=== PATIENT | male | born 1980 | race African-American/Black ===

== ENCOUNTER 2022-03-30 21:08 | Inpatient (IN) | payer OTHER ==
[2022-03-30] MEDS ORDERED: LACTATED RINGERS SOLUTION 1000 ML INFUS.BAG IV ONE (22:16)
[2022-03-30] MEDS ORDERED: PIPERACILLIN/TAZOB 4.5 GM 4.5 GM in DEXTROSE 5%-WATER 100 ML IVPB ONE (22:32)
[2022-03-30] MEDS ORDERED: VANCOMYCIN 1,000 MG in DEXTROSE 5%-WATER - 250 ML IVPB ONE (22:32)
[2022-03-30 22:56] LABS: BASO % 0.6 % (0-2.0); EOS % 1.8 % (0-4.5); HEMATOCRIT 30.2 % (35.4-49); HEMOGLOBIN 10.1 GM/dL (11.7-16.9); LYMPH % 22.4 % (8-40); MCH 28.4 pg (25.7-33.7); MCHC 33.5 g/dl (32.0-35.9); MEAN CELL VOLUME 84.6 fl (80-96); MEAN PLT VOLUME 7.7 fl (7.5-11.1); MONO % 8.4 % (3.8-10.2); NEUT % 66.8 % (42.8-82.8); PLATELET COUNT 304 10^3/uL (134-434); RBC 3.56 M/mm3 (4.00-5.60); RDW 14.3 % (11.9-15.9); WHITE BLOOD COUNT 6.5 K/mm3 (4.0-10.0)
[2022-03-30] MEDS ORDERED: PIPERACILLIN/TAZOB 4.5 GM 4.5 GM/100 ML BAG IVPB ONE (22:56)
[2022-03-30] MEDS ORDERED: VANCOMYCIN 1 GRAM (PRE-DOCKED) 1,000 MG/250 ML BAG IVPB ONE (22:56)
[2022-03-30 23:15] LABS: CHLORIDE 98 mmol/L (98-107); SODIUM 132 mmol/L (136-145)
[2022-03-30 23:17] LABS: CALCIUM 8.2 mg/dL (8.5-10.1)
[2022-03-30 23:18] LABS: ALBUMIN 2.3 g/dl (3.4-5.0); ANION GAP 9 MMOL/L (8-16); BLOOD UREA NITROGEN 14.1 mg/dL (7-18); CO2 25 mmol/L (21-32)
[2022-03-30 23:21] LABS: CREATININE 1.4 mg/dL (0.55-1.3); SGOT/AST 10 U/L (15-37)
[2022-03-30 23:22] LABS: TOT PROT 7.4 g/dl (6.4-8.2)
[2022-03-30 23:23] LABS: BILIRUBIN,TOTAL 0.2 mg/dL (0.2-1)
[2022-03-30 23:24] LABS: ALK PHOS 100 U/L (45-117)
[2022-03-31 00:30] LABS: GLUCOSE,RANDOM 496 mg/dL (74-106); SGPT/ALT 9 U/L (13-61)
[2022-03-31] MEDS ORDERED: INSULIN REGULAR HUMAN 100 UNITS/ML *VIAL IVPUSH ONE (00:43)
[2022-03-31 02:50] LABS: EPI CELLS 13 /uL (0-25.1); HYALINE CASTS 2 /uL (0-3.1); URINE APPEARANCE TURBID; URINE BACTERIA 256 /uL (0-1359); URINE BILIRUBIN NEGATIVE (NEGATIVE); URINE COLOR YELLOW; URINE GLUCOSE (UA) 3+ (NEGATIVE); URINE KETONE NEGATIVE (NEGATIVE); URINE LEUK ESTERASE 2+ (NEGATIVE); URINE NITRITE NEGATIVE (NEGATIVE); URINE PROTEIN 2+ (NEGATIVE); URINE RBC 80 /uL (0-23.9); URINE UROBILINOGEN 0.2 mg/dL (0.2-1.0); URINE WBC 1693 /uL (0-25.8)
[2022-03-31] MEDS: SODIUM CHLORIDE 1,000 ML IV SCH (03:34)
[2022-03-31] MEDS ORDERED: ACETAMINOPHEN 1000 MG/100 ML BAG IVPB ONE (03:36)
[2022-03-31] MEDS ORDERED: ACETAMINOPHEN INJECTION 100 ML IVPB ONE ×3 (03:37→16:42)
[2022-03-31] MEDS ORDERED: INSULIN SLIDING SCALE (NOVOLOG) 1 VIAL SQ SCH ×2 (07:00→11:00)
[2022-03-31] MEDS ORDERED: HEPARIN NA (PORCINE) 5,000 UNITS/ML 1ML VIAL ONE ×2 (08:05→15:53)
[2022-03-31] MEDS: HEPARIN NA (PORCINE) 5,000 UNITS/ML 1ML VIAL SQ SCH ×3 (08:08→22:26)
[2022-03-31 10:00] LABS: BASO % 0.6 % (0-2.0); HEMATOCRIT 29.2 % (35.4-49); LYMPH % 15.4 % (8-40); MCH 28.5 pg (25.7-33.7); MCHC 34.2 g/dl (32.0-35.9); MEAN CELL VOLUME 83.3 fl (80-96); MEAN PLT VOLUME 7.7 fl (7.5-11.1); MONO % 7.3 % (3.8-10.2); NEUT % 74.7 % (42.8-82.8); PLATELET COUNT 317 10^3/uL (134-434); RBC 3.51 M/mm3 (4.00-5.60); RDW 14.4 % (11.9-15.9); WHITE BLOOD COUNT 7.7 K/mm3 (4.0-10.0)
[2022-03-31] MEDS ORDERED: VANCOMYCIN 1 GM in D5W (PRE-DOCKED) 1,000 MG/250 ML IVPB SCH (10:00)
[2022-03-31] MEDS ORDERED: PIPERACILLIN/TAZOB 3.375 GM 3.375 GM in DEXTROSE 5%-WATER - 50 ML IVPB SCH ×2 (10:15→10:45)
[2022-03-31 10:21] LABS: CALCIUM 8.1 mg/dL (8.5-10.1)
[2022-03-31 10:22] LABS: ALBUMIN 2.2 g/dl (3.4-5.0); BLOOD UREA NITROGEN 17.9 mg/dL (7-18); MAGNESIUM 2.1 mg/dL (1.8-2.4)
[2022-03-31 10:25] LABS: CREATININE 1.2 mg/dL (0.55-1.3); PHOSPHOROUS 3.4 mg/dL (2.5-4.9)
[2022-03-31 10:26] LABS: BILIRUBIN,TOTAL 0.3 mg/dL (0.2-1); TOT PROT 7.3 g/dl (6.4-8.2)
[2022-03-31] MEDS: INSULIN (LEVEMIR) 100 UNITS/ML UNITS SQ SCH ×2 (10:44→22:26)
[2022-03-31] MEDS: ACETAMINOPHEN 1000 MG/100 ML BAG IVPB PRN ×2 (10:45→22:27)
[2022-03-31] MEDS: PIPERACILLIN/TAZOB 3.375 GM 3.375 GM in DEXTROSE 5%-WATER - 50 ML IVPB SCH ×2 (15:00→18:13)
[2022-03-31] MEDS ORDERED: PIPERACILLIN/TAZOB 3.375 GM 3.375 GM/50 ML BAG IVPB ONE (15:53)
[2022-03-31] MEDS: INSULIN SLIDING SCALE (NOVOLOG) 1 VIAL SQ SCH ×3 (16:05→22:27)
[2022-03-31] MEDS ORDERED: PIPERACILLIN/TAZOBACTAM 3.375 GM VIAL IVPB ONE (18:05)
[2022-03-31] MEDS ORDERED: DEXTROSE 5%-WATER - 50 ML IVPB ONE (18:05)
[2022-03-31] MEDS ORDERED: VANCOMYCIN 1 GRAM (PRE-DOCKED) 1,000 MG/250 ML BAG IVPB SCH (22:00)
[2022-04-01] MEDS ORDERED: DEXTROSE 5%-WATER - 50 ML IVPB ONE ×3 (01:30→17:36)
[2022-04-01] MEDS ORDERED: PIPERACILLIN/TAZOBACTAM 3.375 GM VIAL IVPB ONE ×3 (01:30→17:36)
[2022-04-01] MEDS: SODIUM CHLORIDE 1,000 ML IV SCH (02:15)
[2022-04-01] MEDS: PIPERACILLIN/TAZOB 3.375 GM 3.375 GM in DEXTROSE 5%-WATER - 50 ML IVPB SCH ×3 (02:16→17:48)
[2022-04-01] MEDS: HEPARIN NA (PORCINE) 5,000 UNITS/ML 1ML VIAL SQ SCH ×3 (07:03→21:29)
[2022-04-01] MEDS: INSULIN SLIDING SCALE (NOVOLOG) 1 VIAL SQ SCH ×4 (07:03→21:36)
[2022-04-01 07:14] LABS: BASO % 0.3 % (0-2.0); EOS % 2.1 % (0-4.5); HEMATOCRIT 28.1 % (35.4-49); HEMOGLOBIN 9.5 GM/dL (11.7-16.9); LYMPH % 22.6 % (8-40); MCH 28.1 pg (25.7-33.7); MCHC 33.8 g/dl (32.0-35.9); MEAN CELL VOLUME 82.9 fl (80-96); MEAN PLT VOLUME 7.5 fl (7.5-11.1); MONO % 8.6 % (3.8-10.2); NEUT % 66.4 % (42.8-82.8); PLATELET COUNT 313 10^3/uL (134-434); RBC 3.39 M/mm3 (4.00-5.60); RDW 14.6 % (11.9-15.9); WHITE BLOOD COUNT 6.3 K/mm3 (4.0-10.0)
[2022-04-01] MEDS ORDERED: CEFOXITIN SODIUM 1 GM IVPB ONE (07:15)
[2022-04-01] MEDS ORDERED: ONDANSETRON 4 MG/2 ML VIAL IVPUSH PRN (07:17)
[2022-04-01] MEDS ORDERED: PROMETHAZINE HCL 25 MG/1 ML VIAL IVPUSH PRN (07:17)
[2022-04-01] MEDS ORDERED: LIDOCAINE HCL 2% 100 MG/5 ML DISP.SYRIN ONE (07:27)
[2022-04-01] MEDS ORDERED: PROPOFOL 20 ML ONE (07:29)
[2022-04-01] MEDS ORDERED: MIDAZOLAM HCL 2 MG/2 ML SINGLE DOSE VIAL ONE (07:29)
[2022-04-01] MEDS ORDERED: LACTATED RINGERS SOLUTION 1,000 ML IV SCH (07:30)
[2022-04-01 07:36] LABS: PHOSPHOROUS 3.4 mg/dL (2.5-4.9)
[2022-04-01 07:37] LABS: BILIRUBIN,TOTAL 0.3 mg/dL (0.2-1); TOT PROT 6.9 g/dl (6.4-8.2)
[2022-04-01] MEDS ORDERED: ROCURONIUM BROMIDE 50 MG/5 ML SYRINGE ONE (07:45)
[2022-04-01] MEDS ORDERED: DEXAMETHASONE SOD PHOSPHATE 4 MG/1 ML VIAL ONE (08:30)
[2022-04-01] MEDS ORDERED: GLYCOPYRROLATE 0.2 MG/1 ML VIAL ONE (08:31)
[2022-04-01] MEDS ORDERED: NEOSTIGMINE METHYLSULFATE 0.5 MG/ML - 10 ML MDV ONE (08:31)
[2022-04-01] MEDS: INSULIN (LEVEMIR) 100 UNITS/ML UNITS SQ SCH ×2 (10:47→21:29)
[2022-04-01] MEDS: ACETAMINOPHEN 1000 MG/100 ML BAG IVPB PRN (19:48)
[2022-04-02] MEDS ORDERED: DEXTROSE 5%-WATER - 50 ML IVPB ONE ×3 (01:13→16:38)
[2022-04-02] MEDS ORDERED: PIPERACILLIN/TAZOBACTAM 3.375 GM VIAL IVPB ONE ×3 (01:13→16:38)
[2022-04-02] MEDS: PIPERACILLIN/TAZOB 3.375 GM 3.375 GM in DEXTROSE 5%-WATER - 50 ML IVPB SCH ×3 (01:33→17:22)
[2022-04-02] MEDS: SODIUM CHLORIDE 1,000 ML IV SCH ×2 (01:33→12:46)
[2022-04-02] MEDS: HEPARIN NA (PORCINE) 5,000 UNITS/ML 1ML VIAL SQ SCH ×3 (06:30→21:39)
[2022-04-02] MEDS: INSULIN SLIDING SCALE (NOVOLOG) 1 VIAL SQ SCH ×4 (06:31→21:38)
[2022-04-02 08:55] LABS: BASO % 0.3 % (0-2.0); EOS % 0.7 % (0-4.5); HEMATOCRIT 27.4 % (35.4-49); HEMOGLOBIN 9.3 GM/dL (11.7-16.9); LYMPH % 26.3 % (8-40); MCH 28.3 pg (25.7-33.7); MEAN CELL VOLUME 83.2 fl (80-96); MEAN PLT VOLUME 7.7 fl (7.5-11.1); MONO % 9.2 % (3.8-10.2); NEUT % 63.5 % (42.8-82.8); PLATELET COUNT 320 10^3/uL (134-434); RBC 3.29 M/mm3 (4.00-5.60); RDW 14.2 % (11.9-15.9)
[2022-04-02 09:15] LABS: ALBUMIN 1.9 g/dl (3.4-5.0); CALCIUM 7.8 mg/dL (8.5-10.1)
[2022-04-02 09:16] LABS: BLOOD UREA NITROGEN 13.6 mg/dL (7-18)
[2022-04-02 09:19] LABS: PHOSPHOROUS 2.6 mg/dL (2.5-4.9)
[2022-04-02 09:20] LABS: BILIRUBIN,TOTAL 0.2 mg/dL (0.2-1); TOT PROT 6.6 g/dl (6.4-8.2)
[2022-04-02] MEDS: ACETAMINOPHEN 1000 MG/100 ML BAG IVPB PRN ×2 (09:58→17:46)
[2022-04-02] MEDS: INSULIN (LEVEMIR) 100 UNITS/ML UNITS SQ SCH ×2 (11:42→21:38)
[2022-04-02 14:01] VITALS: BMI 23.6
[2022-04-02] MEDS: AMINO ACIDS/PROTEIN HYDROLYS 30 ML LIQUID.PKT PO SCH (17:22)
[2022-04-02] MEDS ORDERED: diphenhydrAMINE HCL 25 MG CAPSULE (FP) PO ONE (21:06)
[2022-04-03] MEDS ORDERED: DEXTROSE 5%-WATER - 50 ML IVPB ONE ×3 (00:08→17:07)
[2022-04-03] MEDS ORDERED: PIPERACILLIN/TAZOBACTAM 3.375 GM VIAL IVPB ONE ×4 (00:08→17:07)
[2022-04-03] MEDS: PIPERACILLIN/TAZOB 3.375 GM 3.375 GM in DEXTROSE 5%-WATER - 50 ML IVPB SCH ×4 (00:50→17:22)
[2022-04-03] MEDS: HEPARIN NA (PORCINE) 5,000 UNITS/ML 1ML VIAL SQ SCH ×2 (06:23→13:21)
[2022-04-03] MEDS: SODIUM CHLORIDE 1,000 ML IV SCH (06:23)
[2022-04-03] MEDS: INSULIN SLIDING SCALE (NOVOLOG) 1 VIAL SQ SCH ×4 (06:23→21:48)
[2022-04-03] MEDS: AMINO ACIDS/PROTEIN HYDROLYS 30 ML LIQUID.PKT PO SCH ×3 (09:04→17:20)
[2022-04-03 10:07] LABS: BASO % 0.5 % (0-2.0); HEMATOCRIT 27.7 % (35.4-49); HEMOGLOBIN 9.4 GM/dL (11.7-16.9); MCH 28.3 pg (25.7-33.7); MCHC 33.8 g/dl (32.0-35.9); MEAN CELL VOLUME 83.6 fl (80-96); MEAN PLT VOLUME 7.2 fl (7.5-11.1); MONO % 8.4 % (3.8-10.2); NEUT % 65.1 % (42.8-82.8); PLATELET COUNT 309 10^3/uL (134-434); RBC 3.31 M/mm3 (4.00-5.60); RDW 14.2 % (11.9-15.9); WHITE BLOOD COUNT 6.3 K/mm3 (4.0-10.0)
[2022-04-03 10:28] LABS: CALCIUM 7.9 mg/dL (8.5-10.1)
[2022-04-03 10:29] LABS: ALBUMIN 1.9 g/dl (3.4-5.0); BLOOD UREA NITROGEN 16.2 mg/dL (7-18); MAGNESIUM 1.7 mg/dL (1.8-2.4)
[2022-04-03 10:32] LABS: CREATININE 0.7 mg/dL (0.55-1.3); PHOSPHOROUS 2.5 mg/dL (2.5-4.9)
[2022-04-03 10:33] LABS: BILIRUBIN,TOTAL 0.3 mg/dL (0.2-1); TOT PROT 6.5 g/dl (6.4-8.2)
[2022-04-03] MEDS: INSULIN (LEVEMIR) 100 UNITS/ML UNITS SQ SCH ×2 (10:57→21:38)
[2022-04-03] MEDS: ASCORBIC ACID 500 MG TABLET (FP) PO SCH (10:58)
[2022-04-03] MEDS: ZINC SULFATE 220 MG CAPSULE (FP) PO SCH (11:53)
[2022-04-03] MEDS: ACETAMINOPHEN 1000 MG/100 ML BAG IVPB PRN ×2 (14:11→21:45)
[2022-04-03] MEDS: VANCOMYCIN 250 MG/5 ML ORAL SOLUTION PO SCH (17:20)
[2022-04-03] MEDS: diphenhydrAMINE HCL 25 MG CAPSULE (FP) PO PRN (22:33)
[2022-04-04] MEDS ORDERED: PIPERACILLIN/TAZOBACTAM 3.375 GM VIAL IVPB ONE ×3 (00:40→16:27)
[2022-04-04] MEDS ORDERED: DEXTROSE 5%-WATER - 50 ML IVPB ONE ×3 (00:41→16:27)
[2022-04-04] MEDS: PIPERACILLIN/TAZOB 3.375 GM 3.375 GM in DEXTROSE 5%-WATER - 50 ML IVPB SCH ×3 (01:46→17:24)
[2022-04-04] MEDS: VANCOMYCIN 250 MG/5 ML ORAL SOLUTION PO SCH ×4 (01:46→17:27)
[2022-04-04] MEDS: INSULIN SLIDING SCALE (NOVOLOG) 1 VIAL SQ SCH ×4 (06:42→21:36)
[2022-04-04 09:46] LABS: BASO % 0.3 % (0-2.0); EOS % 3.6 % (0-4.5); HEMATOCRIT 27.8 % (35.4-49); HEMOGLOBIN 9.3 GM/dL (11.7-16.9); LYMPH % 35.1 % (8-40); MCH 28.1 pg (25.7-33.7); MCHC 33.6 g/dl (32.0-35.9); MEAN CELL VOLUME 83.7 fl (80-96); MEAN PLT VOLUME 6.9 fl (7.5-11.1); MONO % 12.1 % (3.8-10.2); NEUT % 48.9 % (42.8-82.8); PLATELET COUNT 303 10^3/uL (134-434); RBC 3.32 M/mm3 (4.00-5.60); RDW 14.4 % (11.9-15.9); WHITE BLOOD COUNT 4.7 K/mm3 (4.0-10.0)
[2022-04-04] MEDS ORDERED: ENOXAPARIN NA (PORCINE) 40 MG/0.4 ML DISP.SYRIN SQ SCH (10:00)
[2022-04-04] MEDS: ASCORBIC ACID 500 MG TABLET (FP) PO SCH (10:04)
[2022-04-04] MEDS: AMINO ACIDS/PROTEIN HYDROLYS 30 ML LIQUID.PKT PO SCH ×3 (10:05→17:22)
[2022-04-04] MEDS: ZINC SULFATE 220 MG CAPSULE (FP) PO SCH (10:09)
[2022-04-04 10:16] LABS: BLOOD UREA NITROGEN 20.8 mg/dL (7-18); MAGNESIUM 1.7 mg/dL (1.8-2.4)
[2022-04-04 10:19] LABS: CREATININE 0.7 mg/dL (0.55-1.3); PHOSPHOROUS 3.2 mg/dL (2.5-4.9)
[2022-04-04 10:21] LABS: BILIRUBIN,TOTAL 0.2 mg/dL (0.2-1); TOT PROT 6.8 g/dl (6.4-8.2)
[2022-04-04] MEDS: INSULIN (LEVEMIR) 100 UNITS/ML UNITS SQ SCH ×2 (10:25→21:35)
[2022-04-04] MEDS: diphenhydrAMINE HCL 25 MG CAPSULE (FP) PO PRN ×2 (15:40→21:34)
[2022-04-04] MEDS: ACETAMINOPHEN 325 MG TABLET (FP) PO PRN (21:34)
[2022-04-05] MEDS ORDERED: PIPERACILLIN/TAZOBACTAM 3.375 GM VIAL IVPB ONE ×2 (00:52→08:52)
[2022-04-05] MEDS ORDERED: DEXTROSE 5%-WATER - 50 ML IVPB ONE ×2 (00:53→08:53)
[2022-04-05] MEDS: VANCOMYCIN 250 MG/5 ML ORAL SOLUTION PO SCH ×2 (01:29→06:46)
[2022-04-05] MEDS: PIPERACILLIN/TAZOB 3.375 GM 3.375 GM in DEXTROSE 5%-WATER - 50 ML IVPB SCH ×2 (01:30→10:04)
[2022-04-05] MEDS: INSULIN SLIDING SCALE (NOVOLOG) 1 VIAL SQ SCH ×4 (06:51→21:38)
[2022-04-05] MEDS: ZINC SULFATE 220 MG CAPSULE (FP) PO SCH (10:04)
[2022-04-05] MEDS: ASCORBIC ACID 500 MG TABLET (FP) PO SCH (10:04)
[2022-04-05] MEDS: AMINO ACIDS/PROTEIN HYDROLYS 30 ML LIQUID.PKT PO SCH ×3 (10:04→18:20)
[2022-04-05] MEDS: INSULIN (LEVEMIR) 100 UNITS/ML UNITS SQ SCH ×2 (10:05→21:37)
[2022-04-05] MEDS: ACETAMINOPHEN 325 MG TABLET (FP) PO PRN ×2 (12:42→21:36)
[2022-04-05] MEDS ORDERED: MEROPENEM 1 GM VIAL (RESTRICTED TO ID) IVPB ONE (17:58)
[2022-04-05] MEDS ORDERED: DEXTROSE 5%-WATER 100 ML IVPB ONE (17:58)
[2022-04-05] MEDS: diphenhydrAMINE HCL 25 MG CAPSULE (FP) PO PRN (18:20)
[2022-04-05] MEDS: MEROPENEM 1 GM in DEXTROSE 5%-WATER 100 ML IVPB SCH (18:20)
[2022-04-05 20:05] LABS: MAGNESIUM 1.8 mg/dL (1.8-2.4)
[2022-04-05 20:09] LABS: PHOSPHOROUS 3.8 mg/dL (2.5-4.9)
[2022-04-05] MEDS ORDERED: diphenhydrAMINE HCL 25 MG CAPSULE (FP) PO ONE (21:34)
[2022-04-05] MEDS: oxyCODONE HCL 5 MG TABLET PO PRN (21:35)
[2022-04-06] MEDS ORDERED: DEXTROSE 5%-WATER 100 ML IVPB ONE ×2 (00:52→10:18)
[2022-04-06] MEDS ORDERED: MEROPENEM 1 GM VIAL (RESTRICTED TO ID) IVPB ONE ×2 (00:52→10:18)
[2022-04-06] MEDS: MEROPENEM 1 GM in DEXTROSE 5%-WATER 100 ML IVPB SCH ×2 (01:31→10:41)
[2022-04-06] MEDS: INSULIN SLIDING SCALE (NOVOLOG) 1 VIAL SQ SCH ×4 (06:29→23:13)
[2022-04-06 08:54] LABS: HEMATOCRIT 24.5 % (35.4-49); HEMOGLOBIN 8.1 GM/dL (11.7-16.9); MCHC 33.2 g/dl (32.0-35.9); MEAN CELL VOLUME 84.2 fl (80-96); MEAN PLT VOLUME 6.9 fl (7.5-11.1); PLATELET COUNT 296 10^3/uL (134-434); RBC 2.91 M/mm3 (4.00-5.60); RDW 14.3 % (11.9-15.9); WHITE BLOOD COUNT 6.2 K/mm3 (4.0-10.0)
[2022-04-06 09:09] LABS: CALCIUM 8.1 mg/dL (8.5-10.1)
[2022-04-06 09:13] LABS: CREATININE 0.7 mg/dL (0.55-1.3)
[2022-04-06] MEDS: oxyCODONE HCL 5 MG TABLET PO PRN ×2 (10:40→22:35)
[2022-04-06] MEDS: ASCORBIC ACID 500 MG TABLET (FP) PO SCH (10:41)
[2022-04-06] MEDS: AMINO ACIDS/PROTEIN HYDROLYS 30 ML LIQUID.PKT PO SCH ×3 (10:41→18:29)
[2022-04-06] MEDS: INSULIN (LEVEMIR) 100 UNITS/ML UNITS SQ SCH ×2 (10:41→23:13)
[2022-04-06] MEDS: ZINC SULFATE 220 MG CAPSULE (FP) PO SCH (10:41)
[2022-04-06] MEDS ORDERED: SODIUM CHLORIDE 50 ML IVPB ONE (14:59)
[2022-04-06] MEDS ORDERED: ERTAPENEM SODIUM 1 GM VIAL ONE (14:59)
[2022-04-06] MEDS: ERTAPENEM SODIUM 1 GM in SODIUM CHLORIDE 50 ML IVPB SCH (15:06)
[2022-04-06] MEDS: diphenhydrAMINE HCL 25 MG CAPSULE (FP) PO PRN ×2 (15:08→22:34)
[2022-04-06] MEDS: DAPTOMYCIN 550 MG in SODIUM CHLORIDE 50 ML IVPB SCH (16:32)
[2022-04-06] MEDS: ACETAMINOPHEN 325 MG TABLET (FP) PO PRN (18:31)
[2022-04-06] MEDS ORDERED: INSULIN (LEVEMIR) 100 UNITS/ML UNITS SQ ONE (19:32)
[2022-04-06] MEDS: BANATROL PLUS POWDER PACKET PO SCH (23:13)
[2022-04-07] MEDS: diphenhydrAMINE HCL 25 MG CAPSULE (FP) PO PRN ×2 (06:24→17:56)
[2022-04-07] MEDS: INSULIN SLIDING SCALE (NOVOLOG) 1 VIAL SQ SCH ×4 (06:26→21:51)
[2022-04-07] MEDS: BANATROL PLUS POWDER PACKET PO SCH ×3 (06:27→21:50)
[2022-04-07 08:31] LABS: HEMOGLOBIN 8.8 GM/dL (11.7-16.9); MCH 28.5 pg (25.7-33.7); MCHC 33.9 g/dl (32.0-35.9); MEAN CELL VOLUME 84.1 fl (80-96); MEAN PLT VOLUME 6.8 fl (7.5-11.1); PLATELET COUNT 310 10^3/uL (134-434); RBC 3.09 M/mm3 (4.00-5.60); RDW 14.7 % (11.9-15.9); WHITE BLOOD COUNT 5.4 K/mm3 (4.0-10.0)
[2022-04-07 08:56] LABS: CALCIUM 8.2 mg/dL (8.5-10.1)
[2022-04-07 08:57] LABS: BLOOD UREA NITROGEN 22.6 mg/dL (7-18)
[2022-04-07 09:00] LABS: CREATININE 0.7 mg/dL (0.55-1.3)
[2022-04-07] MEDS ORDERED: ERTAPENEM SODIUM 1 GM VIAL ONE (09:15)
[2022-04-07] MEDS ORDERED: SODIUM CHLORIDE 50 ML IVPB ONE (09:15)
[2022-04-07] MEDS: AMINO ACIDS/PROTEIN HYDROLYS 30 ML LIQUID.PKT PO SCH ×3 (10:05→16:41)
[2022-04-07] MEDS: INSULIN (LEVEMIR) 100 UNITS/ML UNITS SQ SCH ×2 (10:05→21:51)
[2022-04-07] MEDS: ERTAPENEM SODIUM 1 GM in SODIUM CHLORIDE 50 ML IVPB SCH (10:05)
[2022-04-07] MEDS: MULTIVITAMINS (DAILY MVI) TABLET (FP) PO SCH (10:06)
[2022-04-07] MEDS: ASCORBIC ACID 500 MG TABLET (FP) PO SCH (10:06)
[2022-04-07] MEDS: ZINC SULFATE 220 MG CAPSULE (FP) PO SCH (10:06)
[2022-04-07] MEDS: DAPTOMYCIN 550 MG in SODIUM CHLORIDE 50 ML IVPB SCH (15:46)
[2022-04-07] MEDS: oxyCODONE HCL 5 MG TABLET PO PRN (16:41)
[2022-04-07] MEDS: HEPARIN NA (PORCINE) 5,000 UNITS/ML 1ML VIAL SQ SCH (21:51)
[2022-04-08] MEDS: diphenhydrAMINE HCL 25 MG CAPSULE (FP) PO PRN ×3 (02:07→23:29)
[2022-04-08] MEDS: BANATROL PLUS POWDER PACKET PO SCH ×3 (06:32→21:37)
[2022-04-08] MEDS: HEPARIN NA (PORCINE) 5,000 UNITS/ML 1ML VIAL SQ SCH (06:32)
[2022-04-08] MEDS: INSULIN SLIDING SCALE (NOVOLOG) 1 VIAL SQ SCH ×4 (06:33→21:37)
[2022-04-08] MEDS ORDERED: SODIUM CHLORIDE 50 ML IVPB ONE (10:35)
[2022-04-08] MEDS ORDERED: ERTAPENEM SODIUM 1 GM VIAL ONE (10:35)
[2022-04-08] MEDS: ERTAPENEM SODIUM 1 GM in SODIUM CHLORIDE 50 ML IVPB SCH (10:52)
[2022-04-08] MEDS: AMINO ACIDS/PROTEIN HYDROLYS 30 ML LIQUID.PKT PO SCH ×3 (10:52→17:42)
[2022-04-08] MEDS: INSULIN (LEVEMIR) 100 UNITS/ML UNITS SQ SCH ×2 (10:53→21:38)
[2022-04-08] MEDS: ZINC SULFATE 220 MG CAPSULE (FP) PO SCH (10:53)
[2022-04-08] MEDS: ASCORBIC ACID 500 MG TABLET (FP) PO SCH (10:54)
[2022-04-08] MEDS: MULTIVITAMINS (DAILY MVI) TABLET (FP) PO SCH (10:54)
[2022-04-08 11:03] LABS: HEMATOCRIT 27.5 % (35.4-49); HEMOGLOBIN 9.2 GM/dL (11.7-16.9); MCH 28.2 pg (25.7-33.7); MCHC 33.6 g/dl (32.0-35.9); MEAN CELL VOLUME 83.8 fl (80-96); PLATELET COUNT 327 10^3/uL (134-434); RBC 3.28 M/mm3 (4.00-5.60); RDW 14.4 % (11.9-15.9); WHITE BLOOD COUNT 6.1 K/mm3 (4.0-10.0)
[2022-04-08 11:24] LABS: CALCIUM 8.5 mg/dL (8.5-10.1)
[2022-04-08 11:25] LABS: BLOOD UREA NITROGEN 21.7 mg/dL (7-18)
[2022-04-08 11:26] LABS: MAGNESIUM 2.1 mg/dL (1.8-2.4)
[2022-04-08 11:28] LABS: CREATININE 0.7 mg/dL (0.55-1.3)
[2022-04-08] MEDS: LORATADINE 10 MG TABLET PO SCH (12:24)
[2022-04-08] MEDS: CYCLOBENZAPRINE HCL 5 MG TABLET PO PRN (12:24)
[2022-04-08] MEDS ORDERED: CYCLOBENZAPRINE HCL 10 MG TABLET (FP) PO PRN (12:58)
[2022-04-08] MEDS: DAPTOMYCIN 550 MG in SODIUM CHLORIDE 50 ML IVPB SCH (15:48)
[2022-04-08] MEDS: ACETAMINOPHEN 325 MG TABLET (FP) PO PRN (21:36)
[2022-04-09] MEDS: BANATROL PLUS POWDER PACKET PO SCH ×3 (07:07→21:42)
[2022-04-09] MEDS: INSULIN SLIDING SCALE (NOVOLOG) 1 VIAL SQ SCH ×4 (07:09→21:42)
[2022-04-09 08:34] LABS: HEMATOCRIT 26.8 % (35.4-49); HEMOGLOBIN 9.1 GM/dL (11.7-16.9); MCH 28.4 pg (25.7-33.7); MCHC 33.8 g/dl (32.0-35.9); MEAN PLT VOLUME 6.9 fl (7.5-11.1); PLATELET COUNT 352 10^3/uL (134-434); RBC 3.19 M/mm3 (4.00-5.60); RDW 14.9 % (11.9-15.9); WHITE BLOOD COUNT 4.9 K/mm3 (4.0-10.0)
[2022-04-09 08:57] LABS: BLOOD UREA NITROGEN 23.2 mg/dL (7-18); CALCIUM 8.4 mg/dL (8.5-10.1); MAGNESIUM 1.9 mg/dL (1.8-2.4)
[2022-04-09 09:00] LABS: CREATININE 0.6 mg/dL (0.55-1.3)
[2022-04-09] MEDS ORDERED: ERTAPENEM SODIUM 1 GM VIAL ONE (09:24)
[2022-04-09] MEDS ORDERED: SODIUM CHLORIDE 50 ML IVPB ONE (09:24)
[2022-04-09] MEDS: MULTIVITAMINS (DAILY MVI) TABLET (FP) PO SCH (09:27)
[2022-04-09] MEDS: LORATADINE 10 MG TABLET PO SCH (09:27)
[2022-04-09] MEDS: ZINC SULFATE 220 MG CAPSULE (FP) PO SCH (09:27)
[2022-04-09] MEDS: ERTAPENEM SODIUM 1 GM in SODIUM CHLORIDE 50 ML IVPB SCH (09:27)
[2022-04-09] MEDS: ASCORBIC ACID 500 MG TABLET (FP) PO SCH (09:27)
[2022-04-09] MEDS: AMINO ACIDS/PROTEIN HYDROLYS 30 ML LIQUID.PKT PO SCH ×3 (09:27→17:12)
[2022-04-09] MEDS: diphenhydrAMINE HCL 25 MG CAPSULE (FP) PO PRN ×2 (09:27→21:39)
[2022-04-09] MEDS: INSULIN (LEVEMIR) 100 UNITS/ML UNITS SQ SCH ×2 (09:29→21:42)
[2022-04-09] MEDS: oxyCODONE HCL 5 MG TABLET PO PRN (11:20)
[2022-04-09] MEDS: CYCLOBENZAPRINE HCL 5 MG TABLET PO PRN (11:20)
[2022-04-09] MEDS ORDERED: diphenhydrAMINE HCL 25 MG CAPSULE (FP) PO ONE (12:48)
[2022-04-09] MEDS: MINERAL OIL/PET HY-PHL TOPICAL OINTMENT 454 GM JAR TP SCH ×2 (15:01→21:41)
[2022-04-09] MEDS: DAPTOMYCIN 550 MG in SODIUM CHLORIDE 50 ML IVPB SCH (15:01)
[2022-04-10] MEDS: BANATROL PLUS POWDER PACKET PO SCH ×3 (06:42→22:45)
[2022-04-10] MEDS: INSULIN SLIDING SCALE (NOVOLOG) 1 VIAL SQ SCH ×4 (06:42→22:53)
[2022-04-10 08:19] LABS: HEMATOCRIT 27.4 % (35.4-49); HEMOGLOBIN 9.3 GM/dL (11.7-16.9); MCH 28.7 pg (25.7-33.7); MCHC 33.9 g/dl (32.0-35.9); MEAN CELL VOLUME 84.7 fl (80-96); MEAN PLT VOLUME 7.2 fl (7.5-11.1); PLATELET COUNT 387 10^3/uL (134-434); RBC 3.23 M/mm3 (4.00-5.60); RDW 14.6 % (11.9-15.9); WHITE BLOOD COUNT 5.7 K/mm3 (4.0-10.0)
[2022-04-10 08:22] LABS: BLOOD UREA NITROGEN 31.4 mg/dL (7-18); CALCIUM 8.6 mg/dL (8.5-10.1)
[2022-04-10 08:24] LABS: ALBUMIN 2.3 g/dl (3.4-5.0)
[2022-04-10 08:26] LABS: CREATININE 0.9 mg/dL (0.55-1.3)
[2022-04-10 08:27] LABS: BILIRUBIN,TOTAL 0.3 mg/dL (0.2-1)
[2022-04-10] MEDS: AMINO ACIDS/PROTEIN HYDROLYS 30 ML LIQUID.PKT PO SCH ×3 (08:49→17:47)
[2022-04-10] MEDS ORDERED: ERTAPENEM SODIUM 1 GM VIAL ONE (10:16)
[2022-04-10] MEDS ORDERED: SODIUM CHLORIDE 50 ML IVPB ONE (10:17)
[2022-04-10] MEDS: ASCORBIC ACID 500 MG TABLET (FP) PO SCH (10:40)
[2022-04-10] MEDS: LORATADINE 10 MG TABLET PO SCH (10:40)
[2022-04-10] MEDS: ZINC SULFATE 220 MG CAPSULE (FP) PO SCH (10:41)
[2022-04-10] MEDS: MINERAL OIL/PET HY-PHL TOPICAL OINTMENT 454 GM JAR TP SCH ×2 (10:41→22:44)
[2022-04-10] MEDS: ERTAPENEM SODIUM 1 GM in SODIUM CHLORIDE 50 ML IVPB SCH (10:41)
[2022-04-10] MEDS: MULTIVITAMINS (DAILY MVI) TABLET (FP) PO SCH (10:41)
[2022-04-10] MEDS: INSULIN (LEVEMIR) 100 UNITS/ML UNITS SQ SCH ×2 (10:41→22:45)
[2022-04-10] MEDS: diphenhydrAMINE HCL 25 MG CAPSULE (FP) PO PRN ×2 (10:41→22:49)
[2022-04-10] MEDS: oxyCODONE HCL 5 MG TABLET PO PRN ×2 (10:42→22:45)
[2022-04-10] MEDS: DAPTOMYCIN 550 MG in SODIUM CHLORIDE 50 ML IVPB SCH (15:44)
[2022-04-10] MEDS: CYCLOBENZAPRINE HCL 5 MG TABLET PO PRN (23:04)
[2022-04-11] MEDS: BANATROL PLUS POWDER PACKET PO SCH ×3 (06:43→23:16)
[2022-04-11] MEDS: INSULIN SLIDING SCALE (NOVOLOG) 1 VIAL SQ SCH ×4 (06:44→21:55)
[2022-04-11] MEDS: AMINO ACIDS/PROTEIN HYDROLYS 30 ML LIQUID.PKT PO SCH ×3 (09:10→17:31)
[2022-04-11] MEDS ORDERED: ERTAPENEM SODIUM 1 GM VIAL ONE (09:18)
[2022-04-11] MEDS ORDERED: SODIUM CHLORIDE 50 ML IVPB ONE (09:18)
[2022-04-11] MEDS: MULTIVITAMINS (DAILY MVI) TABLET (FP) PO SCH (09:44)
[2022-04-11] MEDS: ZINC SULFATE 220 MG CAPSULE (FP) PO SCH (09:44)
[2022-04-11] MEDS: MINERAL OIL/PET HY-PHL TOPICAL OINTMENT 454 GM JAR TP SCH ×2 (09:44→23:17)
[2022-04-11] MEDS: ASCORBIC ACID 500 MG TABLET (FP) PO SCH (09:45)
[2022-04-11] MEDS: INSULIN (LEVEMIR) 100 UNITS/ML UNITS SQ SCH ×2 (09:57→21:53)
[2022-04-11] MEDS: ERTAPENEM SODIUM 1 GM in SODIUM CHLORIDE 50 ML IVPB SCH (10:07)
[2022-04-11] MEDS ORDERED: BUPIVACAINE HCL/PF 0.25% (2.5MG/ML) 10 ML VIAL ONE (11:32)
[2022-04-11] MEDS ORDERED: INDOCYANINE GREEN 25 MG/10 ML VIAL IVPUSH ONE (12:37)
[2022-04-11] MEDS ORDERED: LIDOCAINE HCL/PF 2% SDV 5ML VIAL ONE (12:41)
[2022-04-11] MEDS ORDERED: DEXAMETHASONE SOD PHOSPHATE 4 MG/1 ML VIAL ONE (12:41)
[2022-04-11] MEDS ORDERED: ROCURONIUM BROMIDE 50 MG/5 ML SYRINGE ONE (12:42)
[2022-04-11] MEDS ORDERED: PROPOFOL 20 ML ONE (12:42)
[2022-04-11] MEDS ORDERED: MIDAZOLAM HCL 2 MG/2 ML SINGLE DOSE VIAL ONE (12:42)
[2022-04-11] MEDS ORDERED: KETAMINE HCL 200 MG/20 ML VIAL ONE (12:42)
[2022-04-11] MEDS ORDERED: ONDANSETRON 4 MG/2 ML VIAL IVPUSH PRN ×2 (14:01→15:39)
[2022-04-11] MEDS ORDERED: ACETAMINOPHEN INJECTION 100 ML IVPB ONE (15:11)
[2022-04-11] MEDS ORDERED: ACETAMINOPHEN 325 MG TABLET (FP) PO PRN (15:39)
[2022-04-11] MEDS: DAPTOMYCIN 550 MG in SODIUM CHLORIDE 50 ML IVPB SCH (17:31)
[2022-04-11] MEDS: oxyCODONE HCL 5 MG TABLET PO PRN (21:44)
[2022-04-11] MEDS ORDERED: INSULIN (LEVEMIR) 100 UNITS/ML UNITS SQ ONE (21:51)
[2022-04-12] MEDS: diphenhydrAMINE HCL 25 MG CAPSULE (FP) PO PRN ×2 (00:29→18:19)
[2022-04-12] MEDS: BANATROL PLUS POWDER PACKET PO SCH ×3 (06:22→22:15)
[2022-04-12] MEDS: INSULIN (LEVEMIR) 100 UNITS/ML UNITS SQ SCH ×3 (06:44→22:28)
[2022-04-12] MEDS: INSULIN SLIDING SCALE (NOVOLOG) 1 VIAL SQ SCH ×4 (06:45→22:16)
[2022-04-12] MEDS: AMINO ACIDS/PROTEIN HYDROLYS 30 ML LIQUID.PKT PO SCH ×3 (08:40→16:59)
[2022-04-12 09:04] LABS: HEMATOCRIT 24.8 % (35.4-49); HEMOGLOBIN 8.4 GM/dL (11.7-16.9); MCH 28.5 pg (25.7-33.7); MCHC 33.7 g/dl (32.0-35.9); MEAN CELL VOLUME 84.4 fl (80-96); MEAN PLT VOLUME 7.3 fl (7.5-11.1); PLATELET COUNT 349 10^3/uL (134-434); RBC 2.94 M/mm3 (4.00-5.60); RDW 15.2 % (11.9-15.9); WHITE BLOOD COUNT 10.2 K/mm3 (4.0-10.0)
[2022-04-12 09:50] LABS: CALCIUM 8.3 mg/dL (8.5-10.1)
[2022-04-12 09:51] LABS: BLOOD UREA NITROGEN 25.4 mg/dL (7-18)
[2022-04-12 09:53] LABS: ALBUMIN 2.3 g/dl (3.4-5.0)
[2022-04-12 09:54] LABS: BILIRUBIN,TOTAL 0.3 mg/dL (0.2-1); CREATININE 0.8 mg/dL (0.55-1.3)
[2022-04-12 09:55] LABS: TOT PROT 6.9 g/dl (6.4-8.2)
[2022-04-12] MEDS ORDERED: ERTAPENEM SODIUM 1 GM VIAL ONE (10:52)
[2022-04-12] MEDS ORDERED: SODIUM CHLORIDE 50 ML IVPB ONE (10:52)
[2022-04-12] MEDS: ZINC SULFATE 220 MG CAPSULE (FP) PO SCH (11:04)
[2022-04-12] MEDS: ASCORBIC ACID 500 MG TABLET (FP) PO SCH (11:04)
[2022-04-12] MEDS: MULTIVITAMINS (DAILY MVI) TABLET (FP) PO SCH (11:04)
[2022-04-12] MEDS: ERTAPENEM SODIUM 1 GM in SODIUM CHLORIDE 50 ML IVPB SCH (11:05)
[2022-04-12] MEDS: MINERAL OIL/PET HY-PHL TOPICAL OINTMENT 454 GM JAR TP SCH ×2 (11:07→22:16)
[2022-04-12] MEDS: oxyCODONE HCL 5 MG TABLET PO PRN ×2 (12:50→22:14)
[2022-04-12] MEDS: DAPTOMYCIN 550 MG in SODIUM CHLORIDE 50 ML IVPB SCH (15:28)
[2022-04-12 16:49] LABS: MAGNESIUM 2.2 mg/dL (1.8-2.4)
[2022-04-12 16:53] LABS: PHOSPHOROUS 4.6 mg/dL (2.5-4.9)
[2022-04-13] MEDS: diphenhydrAMINE HCL 25 MG CAPSULE (FP) PO PRN ×3 (00:59→23:49)
[2022-04-13] MEDS: INSULIN SLIDING SCALE (NOVOLOG) 1 VIAL SQ SCH ×4 (07:15→22:03)
[2022-04-13] MEDS: INSULIN (LEVEMIR) 100 UNITS/ML UNITS SQ SCH ×2 (07:15→22:03)
[2022-04-13] MEDS: BANATROL PLUS POWDER PACKET PO SCH ×3 (07:16→21:45)
[2022-04-13 08:54] LABS: HEMATOCRIT 27.1 % (35.4-49); HEMOGLOBIN 9.1 GM/dL (11.7-16.9); MCH 28.4 pg (25.7-33.7); MCHC 33.5 g/dl (32.0-35.9); MEAN CELL VOLUME 84.9 fl (80-96); PLATELET COUNT 379 10^3/uL (134-434); RDW 15.4 % (11.9-15.9); WHITE BLOOD COUNT 7.1 K/mm3 (4.0-10.0)
[2022-04-13] MEDS ORDERED: SODIUM CHLORIDE 50 ML IVPB ONE (09:31)
[2022-04-13] MEDS ORDERED: ERTAPENEM SODIUM 1 GM VIAL ONE (09:31)
[2022-04-13] MEDS: ASCORBIC ACID 500 MG TABLET (FP) PO SCH (09:36)
[2022-04-13] MEDS: MULTIVITAMINS (DAILY MVI) TABLET (FP) PO SCH (09:36)
[2022-04-13] MEDS: ERTAPENEM SODIUM 1 GM in SODIUM CHLORIDE 50 ML IVPB SCH (09:36)
[2022-04-13] MEDS: CYCLOBENZAPRINE HCL 10 MG TABLET (FP) PO PRN (09:36)
[2022-04-13] MEDS: MINERAL OIL/PET HY-PHL TOPICAL OINTMENT 454 GM JAR TP SCH ×2 (09:36→22:04)
[2022-04-13] MEDS: ZINC SULFATE 220 MG CAPSULE (FP) PO SCH (09:36)
[2022-04-13] MEDS: AMINO ACIDS/PROTEIN HYDROLYS 30 ML LIQUID.PKT PO SCH ×3 (09:37→18:03)
[2022-04-13 10:07] LABS: CALCIUM 8.4 mg/dL (8.5-10.1)
[2022-04-13 10:09] LABS: ALBUMIN 2.3 g/dl (3.4-5.0); BLOOD UREA NITROGEN 26.1 mg/dL (7-18)
[2022-04-13 10:11] LABS: CREATININE 0.7 mg/dL (0.55-1.3); TOT PROT 6.5 g/dl (6.4-8.2)
[2022-04-13 10:14] LABS: BILIRUBIN,TOTAL 0.8 mg/dL (0.2-1)
[2022-04-13] MEDS: DAPTOMYCIN 550 MG in SODIUM CHLORIDE 50 ML IVPB SCH (16:51)
[2022-04-13] MEDS: PANTOPRAZOLE 40 MG TABLET PO SCH (16:52)
[2022-04-13] MEDS ORDERED: INSULIN (NOVOLOG) ASPART 100 UNITS/ML 10ML VIAL ONE (21:21)
[2022-04-13] MEDS: oxyCODONE HCL 5 MG TABLET PO PRN (21:53)
[2022-04-14] MEDS: BANATROL PLUS POWDER PACKET PO SCH ×4 (06:29→21:10)
[2022-04-14] MEDS: INSULIN (LEVEMIR) 100 UNITS/ML UNITS SQ SCH ×2 (06:35→21:24)
[2022-04-14] MEDS: INSULIN SLIDING SCALE (NOVOLOG) 1 VIAL SQ SCH ×4 (06:36→21:24)
[2022-04-14] MEDS ORDERED: SODIUM CHLORIDE 50 ML IVPB ONE (08:42)
[2022-04-14] MEDS ORDERED: ERTAPENEM SODIUM 1 GM VIAL ONE (08:42)
[2022-04-14] MEDS: AMINO ACIDS/PROTEIN HYDROLYS 30 ML LIQUID.PKT PO SCH ×3 (08:57→17:54)
[2022-04-14] MEDS: ASCORBIC ACID 500 MG TABLET (FP) PO SCH (09:03)
[2022-04-14] MEDS: ERTAPENEM SODIUM 1 GM in SODIUM CHLORIDE 50 ML IVPB SCH (09:03)
[2022-04-14] MEDS: PANTOPRAZOLE 40 MG TABLET PO SCH (09:03)
[2022-04-14] MEDS: ZINC SULFATE 220 MG CAPSULE (FP) PO SCH (09:03)
[2022-04-14] MEDS: MULTIVITAMINS (DAILY MVI) TABLET (FP) PO SCH (09:03)
[2022-04-14] MEDS: MINERAL OIL/PET HY-PHL TOPICAL OINTMENT 454 GM JAR TP SCH ×2 (09:04→21:23)
[2022-04-14 09:07] LABS: PHOSPHOROUS 4.1 mg/dL (2.5-4.9)
[2022-04-14 09:17] LABS: HEMATOCRIT 26.5 % (35.4-49); MCH 28.8 pg (25.7-33.7); MEAN CELL VOLUME 84.9 fl (80-96); MEAN PLT VOLUME 7.1 fl (7.5-11.1); PLATELET COUNT 342 10^3/uL (134-434); RBC 3.12 M/mm3 (4.00-5.60); RDW 14.7 % (11.9-15.9)
[2022-04-14 09:43] LABS: ALBUMIN 2.2 g/dl (3.4-5.0); BLOOD UREA NITROGEN 24.7 mg/dL (7-18); CALCIUM 8.5 mg/dL (8.5-10.1)
[2022-04-14 09:46] LABS: CREATININE 0.7 mg/dL (0.55-1.3)
[2022-04-14 09:47] LABS: BILIRUBIN,TOTAL 0.3 mg/dL (0.2-1)
[2022-04-14 09:48] LABS: TOT PROT 6.5 g/dl (6.4-8.2)
[2022-04-14] MEDS: diphenhydrAMINE HCL 25 MG CAPSULE (FP) PO PRN (11:27)
[2022-04-14 14:41] LABS: MAGNESIUM 1.9 mg/dL (1.8-2.4)
[2022-04-14] MEDS: DAPTOMYCIN 550 MG in SODIUM CHLORIDE 50 ML IVPB SCH (15:34)
[2022-04-15] MEDS: BANATROL PLUS POWDER PACKET PO SCH ×2 (06:30→13:35)
[2022-04-15] MEDS: INSULIN SLIDING SCALE (NOVOLOG) 1 VIAL SQ SCH ×3 (06:32→16:25)
[2022-04-15] MEDS: INSULIN (LEVEMIR) 100 UNITS/ML UNITS SQ SCH (06:32)
[2022-04-15] MEDS: AMINO ACIDS/PROTEIN HYDROLYS 30 ML LIQUID.PKT PO SCH ×3 (07:53→17:29)
[2022-04-15] MEDS ORDERED: ERTAPENEM SODIUM 1 GM VIAL ONE (09:50)
[2022-04-15] MEDS ORDERED: SODIUM CHLORIDE 50 ML IVPB ONE (09:50)
[2022-04-15] MEDS: ERTAPENEM SODIUM 1 GM in SODIUM CHLORIDE 50 ML IVPB SCH ×3 (10:27→13:35)
[2022-04-15] MEDS: PANTOPRAZOLE 40 MG TABLET PO SCH (10:28)
[2022-04-15] MEDS: MULTIVITAMINS (DAILY MVI) TABLET (FP) PO SCH (10:28)
[2022-04-15] MEDS: ASCORBIC ACID 500 MG TABLET (FP) PO SCH (10:28)
[2022-04-15] MEDS: ZINC SULFATE 220 MG CAPSULE (FP) PO SCH (10:28)
[2022-04-15] MEDS: MINERAL OIL/PET HY-PHL TOPICAL OINTMENT 454 GM JAR TP SCH (10:28)
[2022-04-15] MEDS ORDERED: SIMETHICONE 80 MG TAB.CHEW (FP) PO PRN (12:00)
[2022-04-15 12:40] LABS: HEMATOCRIT 28.4 % (35.4-49); HEMOGLOBIN 9.5 GM/dL (11.7-16.9); MCH 28.2 pg (25.7-33.7); MCHC 33.2 g/dl (32.0-35.9); MEAN CELL VOLUME 84.9 fl (80-96); MEAN PLT VOLUME 7.1 fl (7.5-11.1); PLATELET COUNT 343 10^3/uL (134-434); RBC 3.35 M/mm3 (4.00-5.60); WHITE BLOOD COUNT 4.7 K/mm3 (4.0-10.0)
[2022-04-15 12:43] LABS: INR 1.4 (0.83-1.09); PROTHROMBIN TIME (PATIENT) 16.1 SEC (9.7-13.0)
[2022-04-15 13:02] LABS: BLOOD UREA NITROGEN 26.7 mg/dL (7-18); CALCIUM 8.6 mg/dL (8.5-10.1)
[2022-04-15 13:03] LABS: ALBUMIN 2.2 g/dl (3.4-5.0)
[2022-04-15 13:06] LABS: CREATININE 0.7 mg/dL (0.55-1.3)
[2022-04-15 13:07] LABS: BILIRUBIN,TOTAL 0.5 mg/dL (0.2-1); TOT PROT 6.7 g/dl (6.4-8.2)
[2022-04-15] MEDS: DAPTOMYCIN 550 MG in SODIUM CHLORIDE 50 ML IVPB SCH (15:23)
[2022-04-16] MEDS: MINERAL OIL/PET HY-PHL TOPICAL OINTMENT 454 GM JAR TP SCH ×3 (01:01→21:41)
[2022-04-16] MEDS: BANATROL PLUS POWDER PACKET PO SCH ×4 (01:02→21:38)
[2022-04-16] MEDS: INSULIN (LEVEMIR) 100 UNITS/ML UNITS SQ SCH ×3 (01:02→21:38)
[2022-04-16] MEDS: INSULIN SLIDING SCALE (NOVOLOG) 1 VIAL SQ SCH ×5 (01:03→21:40)
[2022-04-16] MEDS ORDERED: ERTAPENEM SODIUM 1 GM VIAL ONE (10:47)
[2022-04-16] MEDS ORDERED: SODIUM CHLORIDE 50 ML IVPB ONE (10:47)
[2022-04-16] MEDS: ZINC SULFATE 220 MG CAPSULE (FP) PO SCH (11:02)
[2022-04-16] MEDS: ERTAPENEM SODIUM 1 GM in SODIUM CHLORIDE 50 ML IVPB SCH (11:02)
[2022-04-16] MEDS: PANTOPRAZOLE 40 MG TABLET PO SCH (11:02)
[2022-04-16] MEDS: ASCORBIC ACID 500 MG TABLET (FP) PO SCH (11:02)
[2022-04-16] MEDS: AMINO ACIDS/PROTEIN HYDROLYS 30 ML LIQUID.PKT PO SCH ×3 (11:02→17:01)
[2022-04-16] MEDS: MULTIVITAMINS (DAILY MVI) TABLET (FP) PO SCH (11:02)
[2022-04-16 13:07] LABS: HEMATOCRIT 27.6 % (35.4-49); HEMOGLOBIN 9.3 GM/dL (11.7-16.9); MCH 28.3 pg (25.7-33.7); MCHC 33.6 g/dl (32.0-35.9); MEAN CELL VOLUME 84.4 fl (80-96); MEAN PLT VOLUME 7.3 fl (7.5-11.1); PLATELET COUNT 323 10^3/uL (134-434); RBC 3.28 M/mm3 (4.00-5.60); RDW 15.1 % (11.9-15.9); WHITE BLOOD COUNT 5.5 K/mm3 (4.0-10.0)
[2022-04-16 13:24] LABS: CALCIUM 8.3 mg/dL (8.5-10.1)
[2022-04-16 13:25] LABS: ALBUMIN 2.4 g/dl (3.4-5.0); BLOOD UREA NITROGEN 28.3 mg/dL (7-18)
[2022-04-16 13:28] LABS: CREATININE 0.8 mg/dL (0.55-1.3)
[2022-04-16 13:29] LABS: BILIRUBIN,TOTAL 0.2 mg/dL (0.2-1)
[2022-04-16 13:30] LABS: TOT PROT 6.7 g/dl (6.4-8.2)
[2022-04-16] MEDS: DAPTOMYCIN 550 MG in SODIUM CHLORIDE 50 ML IVPB SCH (14:42)
[2022-04-16 15:47] LABS: MAGNESIUM 1.9 mg/dL (1.8-2.4)
[2022-04-16 15:51] LABS: PHOSPHOROUS 4.7 mg/dL (2.5-4.9)
[2022-04-17] MEDS: BANATROL PLUS POWDER PACKET PO SCH ×3 (06:13→21:46)
[2022-04-17] MEDS: INSULIN SLIDING SCALE (NOVOLOG) 1 VIAL SQ SCH ×4 (06:13→21:46)
[2022-04-17] MEDS: INSULIN (LEVEMIR) 100 UNITS/ML UNITS SQ SCH ×2 (06:14→21:46)
[2022-04-17] MEDS ORDERED: ERTAPENEM SODIUM 1 GM VIAL ONE (09:57)
[2022-04-17] MEDS ORDERED: SODIUM CHLORIDE 50 ML IVPB ONE (09:57)
[2022-04-17] MEDS ORDERED: MAG HYDROX/AL HYDROX/SIMETH 30 ML UNIT-DOSE CUP PO PRN (10:40)
[2022-04-17] MEDS: MULTIVITAMINS (DAILY MVI) TABLET (FP) PO SCH (10:45)
[2022-04-17] MEDS: ERTAPENEM SODIUM 1 GM in SODIUM CHLORIDE 50 ML IVPB SCH (10:45)
[2022-04-17] MEDS: ASCORBIC ACID 500 MG TABLET (FP) PO SCH (10:46)
[2022-04-17] MEDS: AMINO ACIDS/PROTEIN HYDROLYS 30 ML LIQUID.PKT PO SCH ×3 (10:46→16:45)
[2022-04-17] MEDS: PANTOPRAZOLE 40 MG TABLET PO SCH (10:46)
[2022-04-17] MEDS: MINERAL OIL/PET HY-PHL TOPICAL OINTMENT 454 GM JAR TP SCH ×2 (10:46→21:46)
[2022-04-17] MEDS: ZINC SULFATE 220 MG CAPSULE (FP) PO SCH (10:46)
[2022-04-17] MEDS: DAPTOMYCIN 550 MG in SODIUM CHLORIDE 50 ML IVPB SCH (14:39)
[2022-04-17] MEDS: hydrOXYzine PAMOATE 25 MG CAPSULE (FP) PO SCH (19:20)
[2022-04-18] MEDS: hydrOXYzine PAMOATE 25 MG CAPSULE (FP) PO SCH ×4 (00:32→14:08)
[2022-04-18] MEDS: INSULIN (LEVEMIR) 100 UNITS/ML UNITS SQ SCH ×2 (06:26→23:07)
[2022-04-18] MEDS: BANATROL PLUS POWDER PACKET PO SCH ×3 (06:28→22:51)
[2022-04-18] MEDS: INSULIN SLIDING SCALE (NOVOLOG) 1 VIAL SQ SCH ×4 (06:29→23:07)
[2022-04-18] MEDS ORDERED: SODIUM CHLORIDE 50 ML IVPB ONE (11:08)
[2022-04-18] MEDS ORDERED: ERTAPENEM SODIUM 1 GM VIAL ONE (11:08)
[2022-04-18] MEDS: MINERAL OIL/PET HY-PHL TOPICAL OINTMENT 454 GM JAR TP SCH ×2 (11:11→22:52)
[2022-04-18] MEDS: ASCORBIC ACID 500 MG TABLET (FP) PO SCH (11:12)
[2022-04-18] MEDS: ZINC SULFATE 220 MG CAPSULE (FP) PO SCH (11:12)
[2022-04-18] MEDS: MULTIVITAMINS (DAILY MVI) TABLET (FP) PO SCH (11:12)
[2022-04-18] MEDS: PANTOPRAZOLE 40 MG TABLET PO SCH (11:12)
[2022-04-18] MEDS: AMINO ACIDS/PROTEIN HYDROLYS 30 ML LIQUID.PKT PO SCH ×3 (11:12→17:44)
[2022-04-18] MEDS: ERTAPENEM SODIUM 1 GM in SODIUM CHLORIDE 50 ML IVPB SCH (11:14)
[2022-04-18 12:39] LABS: BASO % 0.5 % (0-2.0); EOS % 2.9 % (0-4.5); HEMATOCRIT 26.2 % (35.4-49); HEMOGLOBIN 8.7 GM/dL (11.7-16.9); LYMPH % 28.4 % (8-40); MCH 28.1 pg (25.7-33.7); MCHC 33.2 g/dl (32.0-35.9); MEAN CELL VOLUME 84.8 fl (80-96); MEAN PLT VOLUME 7.3 fl (7.5-11.1); MONO % 7.2 % (3.8-10.2); PLATELET COUNT 281 10^3/uL (134-434); RBC 3.09 M/mm3 (4.00-5.60); RDW 15.3 % (11.9-15.9); WHITE BLOOD COUNT 4.8 K/mm3 (4.0-10.0)
[2022-04-18] MEDS: DAPTOMYCIN 550 MG in SODIUM CHLORIDE 50 ML IVPB SCH (15:11)
[2022-04-18] MEDS: CYCLOBENZAPRINE HCL 10 MG TABLET (FP) PO PRN (22:51)
[2022-04-19] MEDS: BANATROL PLUS POWDER PACKET PO SCH ×3 (06:04→22:00)
[2022-04-19] MEDS: INSULIN SLIDING SCALE (NOVOLOG) 1 VIAL SQ SCH ×4 (06:15→22:20)
[2022-04-19] MEDS: INSULIN (LEVEMIR) 100 UNITS/ML UNITS SQ SCH ×2 (06:15→22:19)
[2022-04-19] MEDS ORDERED: INSULIN (LEVEMIR) 100 UNITS/ML UNITS SQ ONE (06:20)
[2022-04-19] MEDS ORDERED: INSULIN (NOVOLOG) ASPART 100 UNITS/ML 10ML VIAL ONE (06:20)
[2022-04-19 08:52] LABS: HEMATOCRIT 26.7 % (35.4-49); HEMOGLOBIN 8.8 GM/dL (11.7-16.9); MCH 27.9 pg (25.7-33.7); MCHC 33.1 g/dl (32.0-35.9); MEAN CELL VOLUME 84.3 fl (80-96); MEAN PLT VOLUME 7.4 fl (7.5-11.1); PLATELET COUNT 295 10^3/uL (134-434); RBC 3.16 M/mm3 (4.00-5.60); RDW 15.2 % (11.9-15.9); WHITE BLOOD COUNT 5.7 K/mm3 (4.0-10.0)
[2022-04-19] MEDS ORDERED: SODIUM CHLORIDE 50 ML IVPB ONE (09:05)
[2022-04-19] MEDS ORDERED: ERTAPENEM SODIUM 1 GM VIAL ONE (09:05)
[2022-04-19] MEDS: ERTAPENEM SODIUM 1 GM in SODIUM CHLORIDE 50 ML IVPB SCH (09:55)
[2022-04-19] MEDS: AMINO ACIDS/PROTEIN HYDROLYS 30 ML LIQUID.PKT PO SCH ×3 (09:55→16:34)
[2022-04-19] MEDS: MINERAL OIL/PET HY-PHL TOPICAL OINTMENT 454 GM JAR TP SCH ×2 (09:55→22:00)
[2022-04-19] MEDS: MULTIVITAMINS (DAILY MVI) TABLET (FP) PO SCH (09:55)
[2022-04-19] MEDS: ZINC SULFATE 220 MG CAPSULE (FP) PO SCH (09:55)
[2022-04-19] MEDS: PANTOPRAZOLE 40 MG TABLET PO SCH (09:55)
[2022-04-19] MEDS: ASCORBIC ACID 500 MG TABLET (FP) PO SCH (09:56)
[2022-04-19 11:06] LABS: CALCIUM 8.1 mg/dL (8.5-10.1)
[2022-04-19 11:07] LABS: BLOOD UREA NITROGEN 35.1 mg/dL (7-18)
[2022-04-19 11:08] LABS: MAGNESIUM 2.3 mg/dL (1.8-2.4)
[2022-04-19 11:10] LABS: CREATININE 0.9 mg/dL (0.55-1.3); PHOSPHOROUS 4.4 mg/dL (2.5-4.9)
[2022-04-19] MEDS ORDERED: diphenhydrAMINE HCL 25 MG CAPSULE (FP) PO ONE (11:48)
[2022-04-19] MEDS: DAPTOMYCIN 550 MG in SODIUM CHLORIDE 50 ML IVPB SCH (14:39)
[2022-04-19] MEDS: KCL 10 MEQ IVPB 10 MEQ/100 ML INFUS.BAG IVPB SCH ×2 (16:27→18:07)
[2022-04-19] MEDS: HEPARIN NA (PORCINE) 5,000 UNITS/ML 1ML VIAL SQ SCH (22:00)
[2022-04-19] MEDS: POTASSIUM CHLORIDE TABS 10 MEQ TABLET.ER (FP) PO SCH (22:01)
[2022-04-19] MEDS ORDERED: diphenhydrAMINE HCL 25 MG CAPSULE (FP) PO PRN (22:09)
[2022-04-20] MEDS: BANATROL PLUS POWDER PACKET PO SCH ×3 (06:16→22:11)
[2022-04-20] MEDS: HEPARIN NA (PORCINE) 5,000 UNITS/ML 1ML VIAL SQ SCH ×3 (06:16→22:10)
[2022-04-20] MEDS: INSULIN SLIDING SCALE (NOVOLOG) 1 VIAL SQ SCH ×4 (06:17→22:11)
[2022-04-20] MEDS: INSULIN (LEVEMIR) 100 UNITS/ML UNITS SQ SCH ×2 (06:17→22:10)
[2022-04-20 08:29] LABS: HEMATOCRIT 25.8 % (35.4-49); HEMOGLOBIN 8.8 GM/dL (11.7-16.9); MCH 28.5 pg (25.7-33.7); PLATELET COUNT 299 10^3/uL (134-434); RBC 3.07 M/mm3 (4.00-5.60); RDW 15.5 % (11.9-15.9); WHITE BLOOD COUNT 6.7 K/mm3 (4.0-10.0)
[2022-04-20 08:55] LABS: CALCIUM 8.1 mg/dL (8.5-10.1)
[2022-04-20 08:56] LABS: BLOOD UREA NITROGEN 33.8 mg/dL (7-18); MAGNESIUM 2.1 mg/dL (1.8-2.4)
[2022-04-20 08:59] LABS: CREATININE 0.8 mg/dL (0.55-1.3); PHOSPHOROUS 4.2 mg/dL (2.5-4.9)
[2022-04-20] MEDS ORDERED: ERTAPENEM SODIUM 1 GM VIAL ONE (10:31)
[2022-04-20] MEDS ORDERED: SODIUM CHLORIDE 50 ML IVPB ONE (10:32)
[2022-04-20] MEDS: ERTAPENEM SODIUM 1 GM in SODIUM CHLORIDE 50 ML IVPB SCH ×2 (11:10→11:12)
[2022-04-20] MEDS: MINERAL OIL/PET HY-PHL TOPICAL OINTMENT 454 GM JAR TP SCH ×2 (11:12→22:12)
[2022-04-20] MEDS: AMINO ACIDS/PROTEIN HYDROLYS 30 ML LIQUID.PKT PO SCH ×3 (11:12→17:01)
[2022-04-20] MEDS: PANTOPRAZOLE 40 MG TABLET PO SCH (11:14)
[2022-04-20] MEDS: ZINC SULFATE 220 MG CAPSULE (FP) PO SCH (11:14)
[2022-04-20] MEDS: ASCORBIC ACID 500 MG TABLET (FP) PO SCH (11:14)
[2022-04-20] MEDS: MULTIVITAMINS (DAILY MVI) TABLET (FP) PO SCH (11:14)
[2022-04-20] MEDS: POTASSIUM CHLORIDE TABS 10 MEQ TABLET.ER (FP) PO SCH ×2 (11:14→22:10)
[2022-04-20] MEDS: diphenhydrAMINE HCL 25 MG CAPSULE (FP) PO PRN (14:42)
[2022-04-20] MEDS: DAPTOMYCIN 550 MG in SODIUM CHLORIDE 50 ML IVPB SCH (14:42)
[2022-04-21] MEDS: BANATROL PLUS POWDER PACKET PO SCH ×3 (06:04→22:07)
[2022-04-21] MEDS: INSULIN SLIDING SCALE (NOVOLOG) 1 VIAL SQ SCH ×4 (06:05→22:01)
[2022-04-21] MEDS: INSULIN (LEVEMIR) 100 UNITS/ML UNITS SQ SCH ×2 (06:05→22:01)
[2022-04-21] MEDS: HEPARIN NA (PORCINE) 5,000 UNITS/ML 1ML VIAL SQ SCH ×3 (06:05→22:02)
[2022-04-21 06:36] LABS: ARTERIAL BLD GAS O2 SATURATION 98.3 % (95-98); ARTERIAL BLOOD GAS PO2 122.2 mmHg (80-100); ARTERIAL BLOOD GAS pH 7.344 (7.350-7.450)
[2022-04-21] MEDS: AMINO ACIDS/PROTEIN HYDROLYS 30 ML LIQUID.PKT PO SCH ×3 (08:00→17:34)
[2022-04-21 08:42] LABS: HEMATOCRIT 25.3 % (35.4-49); HEMOGLOBIN 8.6 GM/dL (11.7-16.9); MCH 28.6 pg (25.7-33.7); MEAN CELL VOLUME 84.3 fl (80-96); MEAN PLT VOLUME 7.4 fl (7.5-11.1); PLATELET COUNT 285 10^3/uL (134-434); RDW 15.9 % (11.9-15.9); WHITE BLOOD COUNT 4.9 K/mm3 (4.0-10.0)
[2022-04-21 09:04] LABS: ALBUMIN 2.2 g/dl (3.4-5.0); CALCIUM 8.2 mg/dL (8.5-10.1)
[2022-04-21 09:05] LABS: BLOOD UREA NITROGEN 31.6 mg/dL (7-18); MAGNESIUM 2.1 mg/dL (1.8-2.4)
[2022-04-21 09:08] LABS: CREATININE 0.8 mg/dL (0.55-1.3); PHOSPHOROUS 3.8 mg/dL (2.5-4.9)
[2022-04-21 09:09] LABS: BILIRUBIN,TOTAL 0.2 mg/dL (0.2-1); TOT PROT 6.5 g/dl (6.4-8.2)
[2022-04-21] MEDS ORDERED: ERTAPENEM SODIUM 1 GM VIAL ONE (09:43)
[2022-04-21] MEDS ORDERED: SODIUM CHLORIDE 50 ML IVPB ONE (09:43)
[2022-04-21] MEDS: ERTAPENEM SODIUM 1 GM in SODIUM CHLORIDE 50 ML IVPB SCH (10:36)
[2022-04-21] MEDS: ZINC SULFATE 220 MG CAPSULE (FP) PO SCH (10:37)
[2022-04-21] MEDS: MULTIVITAMINS (DAILY MVI) TABLET (FP) PO SCH (10:37)
[2022-04-21] MEDS: PANTOPRAZOLE 40 MG TABLET PO SCH (10:37)
[2022-04-21] MEDS: CYCLOBENZAPRINE HCL 10 MG TABLET (FP) PO PRN (10:37)
[2022-04-21] MEDS: diphenhydrAMINE HCL 25 MG CAPSULE (FP) PO PRN (10:37)
[2022-04-21] MEDS: ASCORBIC ACID 500 MG TABLET (FP) PO SCH (10:37)
[2022-04-21] MEDS: MINERAL OIL/PET HY-PHL TOPICAL OINTMENT 454 GM JAR TP SCH ×2 (10:38→22:08)
[2022-04-21] MEDS: DAPTOMYCIN 550 MG in SODIUM CHLORIDE 50 ML IVPB SCH (14:06)
[2022-04-22] MEDS: INSULIN (LEVEMIR) 100 UNITS/ML UNITS SQ SCH (06:12)
[2022-04-22] MEDS: HEPARIN NA (PORCINE) 5,000 UNITS/ML 1ML VIAL SQ SCH ×2 (06:12→13:55)
[2022-04-22] MEDS: BANATROL PLUS POWDER PACKET PO SCH ×2 (06:13→13:54)
[2022-04-22] MEDS: INSULIN SLIDING SCALE (NOVOLOG) 1 VIAL SQ SCH ×3 (06:13→17:08)
[2022-04-22 08:57] LABS: HEMATOCRIT 24.9 % (35.4-49); HEMOGLOBIN 8.5 GM/dL (11.7-16.9); MCH 28.5 pg (25.7-33.7); MEAN CELL VOLUME 83.7 fl (80-96); MEAN PLT VOLUME 7.1 fl (7.5-11.1); PLATELET COUNT 314 10^3/uL (134-434); RBC 2.98 M/mm3 (4.00-5.60); RDW 15.9 % (11.9-15.9); WHITE BLOOD COUNT 4.9 K/mm3 (4.0-10.0)
[2022-04-22 09:10] LABS: ALBUMIN 2.2 g/dl (3.4-5.0); BLOOD UREA NITROGEN 29.3 mg/dL (7-18); CALCIUM 8.3 mg/dL (8.5-10.1)
[2022-04-22 09:13] LABS: CREATININE 0.7 mg/dL (0.55-1.3)
[2022-04-22 09:15] LABS: BILIRUBIN,TOTAL 0.2 mg/dL (0.2-1); TOT PROT 6.5 g/dl (6.4-8.2)
[2022-04-22] MEDS ORDERED: ERTAPENEM SODIUM 1 GM VIAL ONE (10:28)
[2022-04-22] MEDS ORDERED: SODIUM CHLORIDE 50 ML IVPB ONE (10:28)
[2022-04-22] MEDS: ERTAPENEM SODIUM 1 GM in SODIUM CHLORIDE 50 ML IVPB SCH (10:30)
[2022-04-22] MEDS: MINERAL OIL/PET HY-PHL TOPICAL OINTMENT 454 GM JAR TP SCH (10:30)
[2022-04-22] MEDS: AMINO ACIDS/PROTEIN HYDROLYS 30 ML LIQUID.PKT PO SCH ×3 (10:30→17:07)
[2022-04-22] MEDS: MULTIVITAMINS (DAILY MVI) TABLET (FP) PO SCH (10:31)
[2022-04-22] MEDS: ZINC SULFATE 220 MG CAPSULE (FP) PO SCH (10:31)
[2022-04-22] MEDS: PANTOPRAZOLE 40 MG TABLET PO SCH (10:31)
[2022-04-22] MEDS: ASCORBIC ACID 500 MG TABLET (FP) PO SCH (10:31)
[2022-04-22] MEDS: diphenhydrAMINE HCL 25 MG CAPSULE (FP) PO PRN (10:31)
[2022-04-22] MEDS: CYCLOBENZAPRINE HCL 10 MG TABLET (FP) PO PRN (10:31)
[2022-04-22 15:22] VITALS: BP 134/76; PULSE 77; RESP 18; TEMP 97.9
[2022-04-22] MEDS: DAPTOMYCIN 550 MG in SODIUM CHLORIDE 50 ML IVPB SCH (15:30)
== END 2022-04-22 19:15 | DRG 364 ==
LOC: JER 21:08 → JERBED 03-31 00:46 → J7W 03-31 17:03
PROVIDERS: ADMIT Hospitalist; ATTEND Internal Medicine
PROC: 0JB70ZZ Excision of Back Subcutaneous Tissue and Fascia, Open Approach (ICD-10-PCS; 2022-04-01)
PROC: 0QBS0ZZ Excision of Coccyx, Open Approach (ICD-10-PCS; 2022-04-01)
PROC: 0D1N4Z4 Bypass Sigmoid Colon to Cutaneous, Percutaneous Endoscopic Approach (ICD-10-PCS; principal; 2022-04-11 13:30)
PROC: 02HV33Z Insertion of Infusion Device into Superior Vena Cava, Percutaneous Approach (ICD-10-PCS; 2022-04-22)
PROC: B518ZZA Fluoroscopy of Superior Vena Cava, Guidance (ICD-10-PCS; 2022-04-22)
DX: E10.69 Type 1 diabetes mellitus with other specified complication (principal); M46.28 Osteomyelitis of vertebra, sacral and sacrococcygeal region; L89.154 Pressure ulcer of sacral region, stage 4; E10.65 Type 1 diabetes mellitus with hyperglycemia; N31.9 Neuromuscular dysfunction of bladder, unspecified; C72.9 Malignant neoplasm of central nervous system, unspecified; G82.20 Paraplegia, unspecified; R45.1 Restlessness and agitation; E87.6 Hypokalemia; L29.8 Other pruritus; R19.7 Diarrhea, unspecified; D72.829 Elevated white blood cell count, unspecified; K21.9 Gastro-esophageal reflux disease without esophagitis; L89.611 Pressure ulcer of right heel, stage 1; B96.1 Klebsiella pneumoniae [K. pneumoniae] as the cause of diseases classified elsewhere; B96.29 Other Escherichia coli [E. coli] as the cause of diseases classified elsewhere; B95.2 Enterococcus as the cause of diseases classified elsewhere; B96.4 Proteus (mirabilis) (morganii) as the cause of diseases classified elsewhere; Z91.14 Patient's other noncompliance with medication regimen; Z89.512 Acquired absence of left leg below knee
CPT/HCPCS: 0241U-QW; 36415; 36569; 36600; 71045-TC-FY; 74176-TC; 80048; 80053; 81003; 82010; 82550; 82803; 82962; 83036; 83605; 83735; 84100; 85025; 85027; 85610; 86850; 86900; 86901; 87040; 87070; 87075; 87076; 87086; 87186; 87205; 87324; 87449; 88304-TC; 93005; 93010; 94760; 97116-GP; 97162-GP; 99285-25; C9803-CS; J0878; J1644; U0003; U0005